=== PATIENT | female | born 1990 | race Caucasian/White ===

== ENCOUNTER 2017-06-04 12:30 | Day surgery (SDC) | payer OTHER ==
[2017-05-31 13:16] VITALS: BMI 25.6
[2017-06-04] MEDS ORDERED: PROMETHAZINE HCL 25 MG/1 ML VIAL IVPUSH PRN (14:16)
[2017-06-04] MEDS ORDERED: ONDANSETRON 4 MG/2 ML VIAL IVPUSH PRN (14:16)
[2017-06-04] MEDS ORDERED: oxyCODONE HCL 5 MG TABLET PO PRN (14:16)
[2017-06-04] MEDS ORDERED: LACTATED RINGERS SOLUTION 1,000 ML IV SCH (14:30)
[2017-06-04] MEDS ORDERED: MIDAZOLAM HCL 2 MG/2 ML SINGLE DOSE VIAL ONE ×2 (14:36→14:47)
[2017-06-04] MEDS ORDERED: LEVOFLOXACIN 500 MG PREMIX BAG IVPB ONE (14:39)
[2017-06-04 15:57] VITALS: TEMP 98.2
--- NOTE | 2017-06-04 15:59 | OP ---
Operative Note - Note: Operative Date: 06/04/17 Pre-Operative Diagnosis: right renal stone Operation: right ESWL Post-Operative Diagnosis: Same as Pre-op Surgeon: Chapito Gutierrez Anesthesia: Fractional
[2017-06-04 18:36] VITALS: BP 105/69; PULSE 75
--- NOTE | 2017-06-05 14:35 | OP ---
DATE OF OPERATION: 06/04/2017 PREOPERATIVE DIAGNOSIS: Right renal stone. POSTOPERATIVE DIAGNOSIS: Right renal stone. PROCEDURE: Right extracorporeal shock wave lithotripsy. ATTENDING: Daniel Araujo MD ANESTHESIA: General. DESCRIPTION OF OPERATION: Patient was brought in the operating room and placed in supine position on the operating room table. Ultrasonography and fluoroscopy were performed. A 7-mm right lower pole stone was noted. General anesthesia and antibiotics were then administered. Extracorporeal shock wave lithotripsy was performed; 2500 impulses at 17 joules of power were administered to the stone. Excellent fragmentation was noted. No complications were noted. The disposition of the patient was to recovery room. DANIEL ARAUJO M.D. [id number]
== END 2017-06-04 17:30 | disposition home or self-care (01) ==
LOC: JASU-SURG 12:30
PROVIDERS: ATTEND Urology
PROC: 0TF3XZZ Fragmentation in Right Kidney Pelvis, External Approach (ICD-10-PCS; principal; 2017-06-04 14:00)
DX: N20.0 Calculus of kidney (principal)
CPT/HCPCS: 84703; 94760